=== PATIENT | female | born 1970 | race Caucasian/White ===

== ENCOUNTER 2019-03-31 19:53 | Emergency (ER) | payer OTHER ==
[~2019-03-31] VITALS: Ht 165.1 cm; Wt 152.3 kg
[~2019-03-31 19:53] MED LIST: CEPH-443 PO; IBUP-1542 PO
[2019-03-31 20:13] VITALS: Ht 165.1 cm; Wt 152.3 kg
[2019-03-31 22:56] VITALS: BP 136/70; PULSE 68; RESP 20
== END 2019-03-31 22:58 | disposition home or self-care (01) ==
LOC: FTE 19:53
DX: S60.862A Insect bite (nonvenomous) of left wrist, initial encounter (principal); L08.9 Local infection of the skin and subcutaneous tissue, unspecified; W57.XXXA Bitten or stung by nonvenomous insect and other nonvenomous arthropods, initial encounter; Y92.9 Unspecified place or not applicable
CPT/HCPCS: 99283